=== PATIENT | male | born 1960 | race Caucasian/White ===

== ENCOUNTER 2019-04-16 22:10 | Emergency (ER) | payer OTHER ==
[~2019-04-16] VITALS: Ht 180.3 cm; Wt 95.0 kg
[2019-04-16] MEDS ORDERED: MORPHINE SULFATE 10 MG/ML SYRINGE. IM ONE (23:00)
[2019-04-16 23:08] VITALS: BP 145/100
--- NOTE | 2019-04-16 23:30 | RAD ---
Right elbow 3 views. HISTORY: Pain after injury while skiing 3 views were taken of the right elbow. There is a fracture of the radial neck with mild impaction at the fracture line. Fat pads at the elbow are displaced. IMPRESSION: 1. Right radial neck fracture. Electronically signed by: Tyrell Cruz MD (04/16/2019 11:26 PM) [facility]
[2019-04-16] MEDS ORDERED: HYDR-3165 PO (23:52)
--- NOTE | 2019-04-16 23:53 | PHYS DOC ---
Past History Past Medical History: Diabetes, High Cholesterol Alcohol Use: None Adult General Chief Complaint Chief Complaint: MECHANICAL FALL HPI HPI Patient is a 58 year old male who presents with complaint of right elbow pain. The patient states that he injured his right elbow approximately 2 hours prior to arrival after having a fall while skiing. He states that he accidentally fell onto his right forearm and directly onto his right elbow. States that since onset, he has had significant pain to the right elbow and has not been able to fully straighten out his right upper extremity. Notes swelling mostly along the lateral aspect of the right elbow. States that he has mild discomfort in the wrist but is able to move it with full range of motion. Notes that when he tries to rotate his forearm this causes worsening pain at the elbow. Denies any other injuries. Patient is concerned that he may have suffered a fracture in the right elbow and thus came to the emergency department for further eval uation. Review of Systems Review of Systems Constitutional: Denies fever or chills [] Eyes: Denies change in visual acuity, redness, or eye pain [] HENT: Denies nasal congestion or sore throat [] Respiratory: Denies cough or shortness of breath [] Cardiovascular: Denies chest pain or edema[] GI: Denies abdominal pain, nausea, vomiting, bloody stools or diarrhea [] : Denies dysuria or hematuria [] Musculoskeletal: Right elbow pain[] Integument: Denies rash or skin lesions [] Neurologic: Denies headache, focal weakness or sensory changes [] All other systems were reviewed and found to be within normal limits, except as documented in this note. Current Medications Current Medications Current Medications Medications (Trade) Dose Ordered Sig/John Start Time Stop Time Status Last Admin Dose Admin Morphine Sulfate (Morphine 10mg Syringe) 5 mg 1X ONCE 04/16/19 23:00 04/16/19 23:13 DC 04/16/19 23:04 5 MG Allergies Allergies Allergies Coded Allergies Type Severity Reaction Last Updated Verified Penicillins Allergy Severe Anaphylaxis 04/16/19 Yes cefaclor Allergy Severe Anaphylaxis 04/16/19 Yes Physical Exam Physical Exam Constitutional: Well developed, well nourished, appears in moderate discomfort, non-toxic appearance. [] HENT: Normocephalic, atraumatic, bilateral external ears normal, oropharynx moist, no oral exudates, nose normal. [] Eyes: PERRLA, EOMI, conjunctiva normal, no discharge. [] Neck: Normal range of motion, no tenderness, supple, no stridor. [] Cardiovascular:Heart rate regular rhythm, no murmur [] Lungs & Thorax: Bilateral breath sounds clear to auscultation [] Abdomen: Bowel sounds normal, soft, no tenderness, no masses, no pulsatile masses. [] Skin: Warm, dry, no erythema, no rash. [] Back: No tenderness, no CVA tenderness. [] Extremities: Significant lateral swelling of the right elbow, radial head tenderness on palpation, patient unable to fully extend that right elbow, right wrist with no bony tenderness, swelling, or deformity. [] Neurologic: Alert and oriented X 3, normal motor function, normal sensory function, no focal deficits noted. [] Current Patient Data Vital Signs Vital Signs Date Time Temp Pulse Resp B/P (MAP) Pulse Ox O2 Delivery O2 Flow Rate FiO2 04/16/19 23:08 98.1 81 18 145/100 (115) 95 Room Air Lab Results Not performed EKG EKG Not performed[] Radiology/Procedures Radiology/[place] [address] IMAGING REPORT Signed PATIENT: KAYLEY ROMERO ACCOUNT: [id number] : 1960 LOCATION: ER AGE: 58 SEX: M EXAM STATUS: REG ER ORD. PHYSICIAN: PRIETO KESSLER MD REASON: Right elbow injury while skiing tonight PROCEDURE: ELBOW RIGHT 3V Right elbow 3 views. HISTORY: Pain after injury while skiing 3 views were taken of the right elbow. There is a fracture of the radial neck with mild impaction at the fracture line. Fat pads at the elbow are displaced. IMPRESSION: 1. Right radial neck fracture. Electronically signed by: Tyrell Jefferson MD (04/16/2019 11:26 PM) [facility] DICTATED AND SIGNED BY: TYRELL JEFFERSON MD DATE: 04/16/19 2326 CC: PRIETO KESSLER MD; NON,STAFF ~ [] Course & Med Decision Making Course & Med Decision Making Pertinent Labs and Imaging studies reviewed. (See chart for details) X-rays confirm radial neck fracture in the right elbow. Initial treatment with IM morphine for pain given in the emergency department. Patient was placed in posterior upper extremity splint by the emergency department nurse. My examination post splint application showed normal capillary refill in all 5 digits of the right hand and normal sensation. Patient notes that he has from out of town and lives in [place], [place]. He states that he will follow-up with an orthopedic surgeon near his home town. Advised follow-up in the next 5-7 days for reevaluation. Prescribed hydrocodone for outpatient treatment of pain symptoms until follow-up can be obtained. Advised return to emergency department for any worsening symptoms. Patient was understanding and in agreement with treatment plan.[] Dragon Disclaimer Dragon Disclaimer This electronic medical record was generated, in whole or in part, using a voice recognition dictation system. Departure Departure: Impression: Primary Impression: Radial neck fracture Disposition: 01 HOME, SELF-CARE Condition: STABLE Referrals: NON,STAFF (PCP) Patient Instructions: Radial Head Fracture Additional Instructions: Follow-up with an orthopedic surgeon in the next 5-7 days for reevaluation. Return to the emergency department for any worsening symptoms. Scripts Hydrocodone Bit/Acetaminophen (NORCO 5-325 TABLET) 1 Each Tablet 1 TAB PO Q4-6HRS PRN for PAIN, #15 TAB Prov: PRIETO KESSLER MD 04/16/19 Problem Qualifiers Primary Impression: Radial neck fracture Encounter type: initial encounter Fracture type: closed Fracture alignment: nondisplaced Laterality: right Qualified Codes: S52.134A - Nondisplaced fracture of neck of right radius, initial encounter for closed fracture PRIETO KESSLER MD Apr 16, 2019 23:53
[2019-04-17] MEDS ORDERED: ACETAMINOPHEN/CODEINE 300/30MG 4TABLET STARTPACK. PO ONE
== END 2019-04-17 00:10 | disposition home or self-care (01) ==
LOC: ER 22:10
DX: S52.131A Displaced fracture of neck of right radius, initial encounter for closed fracture (principal); E11.9 Type 2 diabetes mellitus without complications; E78.00 Pure hypercholesterolemia, unspecified; W18.30XA Fall on same level, unspecified, initial encounter; Y93.23 Activity, snow (alpine) (downhill) skiing, snowboarding, sledding, tobogganing and snow tubing; Y92.89 Other specified places as the place of occurrence of the external cause; Y99.8 Other external cause status
CPT/HCPCS: 29125; 73080; 96372; 99284; J2270